=== PATIENT | male | born 1975 | race Two or more races ===

== ENCOUNTER 2023-02-16 10:02 | Inpatient (IN) | payer OTHER ==
[2023-02-16 10:33] VITALS: BMI 37.2
[2023-02-16] MEDS ORDERED: NALOXONE HCL 0.4 MG/ML VIAL IM PRN (12:04)
[2023-02-16] MEDS ORDERED: DICYCLOMINE HCL 10 MG CAPSULE PO PRN (12:04)
[2023-02-16] MEDS ORDERED: BENZONATATE 200 MG CAPSULE PO PRN (12:04)
[2023-02-16] MEDS ORDERED: diazePAM 5 MG TABLET PO PRN (12:04)
[2023-02-16] MEDS ORDERED: NICOTINE POLACRILEX 2 MG GUM BUC PRN (12:04)
[2023-02-16] MEDS ORDERED: MAGNESIUM HYDROX 2400MG/30ML ORAL SUSPENSION 30 ML CUP PO PRN (12:04)
[2023-02-16] MEDS ORDERED: IBUPROFEN 600 MG TABLET (FP) PO PRN (12:04)
[2023-02-16] MEDS ORDERED: BISMUTH SUBSALICYLATE 262 MG/15 ML BTL PO PRN (12:04)
[2023-02-16] MEDS ORDERED: LOPERAMIDE HCL 2 MG CAPSULE PO PRN (12:04)
[2023-02-16] MEDS ORDERED: POLYETHYLENE GLYCOL (HEALTHYLAX) 3350 17 GM PACKET PO PRN (12:04)
[2023-02-16] MEDS ORDERED: NALOXONE HCL (KLOXXADO) 8 MG SPRAY NS PRN (12:04)
[2023-02-16] MEDS ORDERED: guaiFENesin 600 MG TABLET.ER (FP) PO PRN (12:04)
[2023-02-16] MEDS ORDERED: MAG HYDROX/AL HYDROX/SIMETH 30 ML UNIT-DOSE CUP PO PRN (12:04)
[2023-02-16] MEDS ORDERED: IBUPROFEN 400 MG TABLET (FP) PO PRN (12:04)
[2023-02-16] MEDS ORDERED: ONDANSETRON *ODT* 4 MG TABLET SL PRN (12:04)
[2023-02-16] MEDS ORDERED: ACETAMINOPHEN 325 MG TABLET (FP) PO PRN (12:04)
[2023-02-16] MEDS ORDERED: ALBUTEROL SO4 HFA INHALER IH PRN (12:10)
[2023-02-16] MEDS ORDERED: levETIRAcetam 500 MG TABLET (FP) PO ONE ×2 (12:21→12:47)
[2023-02-16] MEDS ORDERED: ASPIRIN 81 MG CHEWABLE TABLETS ONE (12:47)
[2023-02-16] MEDS: ASPIRIN COATED 81 MG TABLET.EC PO SCH (12:49)
[2023-02-16] MEDS: BICTEGRAV/EMTRICIT/TENOFOV (BIKTARVY) 50-200-25 MG TABLET PO SCH (13:43)
[2023-02-16 14:33] LABS: HEMATOCRIT 41.1 % (35.4-49); MCH 30.6 pg (25.7-33.7); MEAN CELL VOLUME 89.8 fl (80-96); PLATELET COUNT 221 10^3/uL (134-434); RBC 4.57 M/mm3 (4.00-5.60); RDW 13.3 % (11.9-15.9); WHITE BLOOD COUNT 8.6 K/mm3 (4.0-10.0)
[2023-02-16 14:43] LABS: BLOOD UREA NITROGEN 13.8 mg/dL (7-18); TOT PROT 7.9 g/dl (6.4-8.2)
[2023-02-16 14:46] LABS: ALBUMIN 3.6 g/dl (3.4-5.0); CALCIUM 9.5 mg/dL (8.5-10.1); CREATININE 1.3 mg/dL (0.55-1.3)
[2023-02-16 14:52] LABS: BILIRUBIN,TOTAL 0.9 mg/dL (0.2-1)
[2023-02-16] MEDS: diazePAM 5 MG TABLET PO SCH ×2 (17:25→22:14)
[2023-02-16] MEDS ORDERED: MELATONIN 5 MG TABLETS PO SCH (22:00)
[2023-02-16] MEDS: BUDESONIDE/FORMETEROL FUMARATE 160/4.5 mcg INHALER IH SCH (22:14)
[2023-02-16] MEDS: traZODone HCL 50 MG TABLET (FP) PO PRN (22:14)
[2023-02-16] MEDS: THIAMINE HCL 100 MG TABLET (FP) PO SCH (22:14)
[2023-02-17] MEDS: diazePAM 5 MG TABLET PO SCH ×4 (05:50→22:18)
[2023-02-17] MEDS: methaDONE 80 MG, methaDONE 20 MG PO SCH (05:50)
[2023-02-17] MEDS ORDERED: methaDONE HCL 10 MG TABLET PO SCH (06:00)
[2023-02-17] MEDS: BICTEGRAV/EMTRICIT/TENOFOV (BIKTARVY) 50-200-25 MG TABLET PO SCH (07:12)
[2023-02-17] MEDS ORDERED: traZODone HCL 50 MG TABLET (FP) PO SCH (10:00)
[2023-02-17] MEDS: LISINOPRIL 20 MG TABLET PO SCH (10:14)
[2023-02-17] MEDS: PRENATAL VITAMINS W/ FOLIC ACID TABLET (FP) PO SCH (10:14)
[2023-02-17] MEDS: levETIRAcetam 500 MG TABLET (FP) PO SCH (10:14)
[2023-02-17] MEDS: BUDESONIDE/FORMETEROL FUMARATE 160/4.5 mcg INHALER IH SCH ×2 (10:14→22:20)
[2023-02-17] MEDS: metoPROLOL SUCCINATE 25 MG TAB.SR.24H (FP) PO SCH (10:14)
[2023-02-17] MEDS: ASPIRIN COATED 81 MG TABLET.EC PO SCH (10:14)
[2023-02-17] MEDS ORDERED: NICOTINE 10 MG CARTRIDGE (INHALER) IH PRN (10:27)
[2023-02-17] MEDS: hydrOXYzine PAMOATE 25 MG CAPSULE (FP) PO PRN (22:17)
[2023-02-17] MEDS: THIAMINE HCL 100 MG TABLET (FP) PO SCH (22:17)
[2023-02-17] MEDS: METHOCARBAMOL 500 MG TABLET PO PRN (22:18)
[2023-02-17] MEDS: ATORVASTATIN CA 20 MG TABLET (FP) PO SCH (22:21)
[2023-02-18] MEDS: diazePAM 5 MG TABLET PO SCH ×3 (05:14→22:11)
[2023-02-18] MEDS: methaDONE 80 MG, methaDONE 20 MG PO SCH (05:14)
[2023-02-18] MEDS: BENZOCAINE/MENTHOL (CHLORASEPTIC ) LOZENGE MM PRN ×3 (05:19→22:15)
[2023-02-18] MEDS: BICTEGRAV/EMTRICIT/TENOFOV (BIKTARVY) 50-200-25 MG TABLET PO SCH (07:34)
[2023-02-18] MEDS: metoPROLOL SUCCINATE 25 MG TAB.SR.24H (FP) PO SCH (10:25)
[2023-02-18] MEDS: ASPIRIN COATED 81 MG TABLET.EC PO SCH (10:25)
[2023-02-18] MEDS: BUDESONIDE/FORMETEROL FUMARATE 160/4.5 mcg INHALER IH SCH ×2 (10:25→22:10)
[2023-02-18] MEDS: PRENATAL VITAMINS W/ FOLIC ACID TABLET (FP) PO SCH (10:25)
[2023-02-18] MEDS: levETIRAcetam 500 MG TABLET (FP) PO SCH (10:25)
[2023-02-18] MEDS: LISINOPRIL 20 MG TABLET PO SCH (10:25)
[2023-02-18] MEDS: NICOTINE 7 MG/24 HOURS TOPICAL PATCH TD PRN (10:27)
[2023-02-18] MEDS: THIAMINE HCL 100 MG TABLET (FP) PO SCH (22:10)
[2023-02-18] MEDS: METHOCARBAMOL 500 MG TABLET PO PRN (22:10)
[2023-02-18] MEDS: hydrOXYzine PAMOATE 25 MG CAPSULE (FP) PO PRN (22:10)
[2023-02-18] MEDS: ATORVASTATIN CA 20 MG TABLET (FP) PO SCH (22:56)
[2023-02-19] MEDS: diazePAM 5 MG TABLET PO SCH ×2 (05:42→17:05)
[2023-02-19] MEDS: methaDONE 80 MG, methaDONE 20 MG PO SCH (05:43)
[2023-02-19] MEDS: BICTEGRAV/EMTRICIT/TENOFOV (BIKTARVY) 50-200-25 MG TABLET PO SCH (07:18)
[2023-02-19] MEDS: levETIRAcetam 500 MG TABLET (FP) PO SCH (10:16)
[2023-02-19] MEDS: ASPIRIN COATED 81 MG TABLET.EC PO SCH (10:16)
[2023-02-19] MEDS: PRENATAL VITAMINS W/ FOLIC ACID TABLET (FP) PO SCH (10:16)
[2023-02-19] MEDS: LISINOPRIL 20 MG TABLET PO SCH (10:17)
[2023-02-19] MEDS: metoPROLOL SUCCINATE 25 MG TAB.SR.24H (FP) PO SCH (10:17)
[2023-02-19] MEDS: BUDESONIDE/FORMETEROL FUMARATE 160/4.5 mcg INHALER IH SCH ×2 (10:19→22:24)
[2023-02-19] MEDS: BENZOCAINE/MENTHOL (CHLORASEPTIC ) LOZENGE MM PRN ×3 (10:43→22:25)
[2023-02-19] MEDS: NICOTINE 7 MG/24 HOURS TOPICAL PATCH TD PRN (10:44)
[2023-02-19] MEDS: THIAMINE HCL 100 MG TABLET (FP) PO SCH (22:18)
[2023-02-19] MEDS: ATORVASTATIN CA 20 MG TABLET (FP) PO SCH (22:18)
[2023-02-19] MEDS: traZODone HCL 50 MG TABLET (FP) PO PRN (22:21)
[2023-02-20] MEDS: methaDONE 80 MG, methaDONE 20 MG PO SCH (05:20)
[2023-02-20] MEDS ORDERED: diazePAM 5 MG TABLET PO ONE (06:00)
[2023-02-20] MEDS: BICTEGRAV/EMTRICIT/TENOFOV (BIKTARVY) 50-200-25 MG TABLET PO SCH (07:05)
[2023-02-20 09:15] VITALS: BP 130/81; PULSE 91; RESP 20; TEMP 96.2
== END 2023-02-20 09:14 | disposition home or self-care (01) | DRG 773 ==
LOC: YASAS 10:02 → Y3N 12:43
PROVIDERS: ADMIT Allergy & Immunology; ATTEND Surgery
PROC: HZ2ZZZZ Detoxification Services for Substance Abuse Treatment (ICD-10-PCS; principal; 2023-02-16)
DX: F13.230 Sedative, hypnotic or anxiolytic dependence with withdrawal, uncomplicated (principal); F11.20 Opioid dependence, uncomplicated; F17.210 Nicotine dependence, cigarettes, uncomplicated; F19.282 Other psychoactive substance dependence with psychoactive substance-induced sleep disorder; F41.9 Anxiety disorder, unspecified; F32.A Depression, unspecified; B20 Human immunodeficiency virus [HIV] disease; I10 Essential (primary) hypertension; E78.5 Hyperlipidemia, unspecified; E66.9 Obesity, unspecified; Z68.37 Body mass index [BMI] 37.0-37.9, adult; Z79.899 Other long term (current) drug therapy; Z86.19 Personal history of other infectious and parasitic diseases
CPT/HCPCS: 26055; 36415; 80053; 80061; 85027; 86780; 87811; 93005; 93010; C9803-CS; U0003; U0005